=== PATIENT | male | born 1955 | race Caucasian/White ===

== ENCOUNTER → 2023-05-17 | Outpatient (CLI) | payer MEDICARE, BC, SELFPAY ==
--- NOTE | 2023-05-17 08:56 | DI.CT.S_ITS ---
PROCEDURE: CT CHEST ABD PEL W CON INDICATIONS: H N SCC unknown primary TECHNIQUE: After the administration of oral and intravenous contrast, axial sections acquired from the supraclavicular neck to the pubic symphysis. Coronal and sagittal reformats were performed. For radiation dose reduction, the following was used: automated exposure control, adjustment of mA and/or kV according to patient size. COMPARISON: None. FINDINGS: Image quality: Excellent. CHEST: Lower Neck: No enlarged lymph nodes. Thyroid: Within normal limits. Axillae: No enlarged lymph nodes. Chest Wall: Unremarkable. Lungs and Airways: No consolidation. Scattered solid pulmonary nodules measuring 2-3 mm, for example in the left upper lobe (axial image 238) and right upper lobe (axial image 246). Pleura: No pneumothorax or pleural effusions. Heart: Heart size is normal. No pericardial effusion. Thoracic Vessels: The aorta and pulmonary arteries demonstrate normal size. Mediastinum and Monet: No enlarged lymph nodes. Esophagus: No wall thickening. No hiatal hernia. ABDOMEN: Liver: Unremarkable. Gallbladder: Unremarkable. Biliary ducts: Unremarkable. Pancreas: Unremarkable. Spleen: Unremarkable. Adrenal Glands: Unremarkable. Kidneys and Ureters: 2 non-obstructing left renal calculi measuring up to 3 mm and single 2 mm nonobstructing right renal calculus. No hydronephrosis bilaterally. Kidneys are normal in size and symmetrically enhance. Bilateral subcentimeter cortical hypodensities are too small to characterize, probable cysts. Stomach and Bowel: Stomach, small bowel loops, and colon are unremarkable. Peritoneum: No abnormal intraperitoneal fluid. No free air. Ventral Wall: Tiny fat containing periumbilical hernia. Abdominal Nodes: No retroperitoneal or mesenteric adenopathy by size criteria. Vessels: Aorta and inferior vena cava are normal in size. Mild atherosclerotic calcifications of the abdominal aorta. PELVIS: Pelvic Organs: Unremarkable. Bladder: Unremarkable. Pelvic Nodes: No enlarged lymph nodes. Miscellaneous: No inguinal hernias are seen. Bones: Unremarkable. IMPRESSION: 1. Multiple scattered 2-3 mm pulmonary nodules are indeterminate. Recommend continued attention on follow-up imaging. 2. Non-obstructing bilateral renal calculi measuring up to 3 mm on the left and 2 mm on the right. No hydronephrosis. Approved by: Sienna Matthews M.D. on 05/23/2023 at 0:13
--- NOTE | 2023-05-17 08:56 | DI.CT.S_ITS ---
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 3 mm thick coronal and sagittal reformats were generated. For radiation dose reduction, the following was used: automated exposure control. COMPARISON: None. FINDINGS: Skull Base: The visualized intracranial contents, skull, and orbits are unremarkable. Mild mucosal thickening left sphenoid sinus And small retention cysts noted in the left maxillary sinus Pharynx and Larynx: The nasopharyngeal airway is patent and midline. There is an asymmetry to the piriform sinuses, with collapse of the left piriform sinus. The left aspect of the epiglottis is displaced laterally into the collapsed piriform sinus, there is suggestion of irregular heaped up mucosal thickening. Both tonsillar beds are within normal limits common show several tonsilliths. Tongue base and retropharyngeal space unremarkable. Normal appearance of the false and true vocal cords. Muscles and Fascial Planes: Fascial planes are well maintained. No abscess or mass lesion. Lymph Nodes: No evidence of adenopathy. Vasculature: Unremarkable. Submandibular and Parotid Glands: Normal in size and attenuation. Thyroid: Unremarkable. No enlarged or calcified nodules. Bones: No acute fracture. No osteolytic or blastic lesion is evident. Normal bone mineralization. Lung Apices: The visualized lung apices are clear. IMPRESSION: 1. Mild mucosal irregularity noted associated with the left piriform sinus and displacement of the left aspect of the epiglottis and aryepiglottic fold. Consider correlation with direct visualization and/or PET-CT. 2. No adenopathy Approved by: Liborio Bardales M.D. on 05/17/2023 at 17:55
== END ==
LOC: CT 08:56
PROVIDERS: Referring Provider Internal Medicine Hematology & Oncology; Visit Provider Internal Medicine Hematology & Oncology
DX: C79.89 Secondary malignant neoplasm of other specified sites (principal); C80.1 Malignant (primary) neoplasm, unspecified; J34.1 Cyst and mucocele of nose and nasal sinus; R91.8 Other nonspecific abnormal finding of lung field; N20.0 Calculus of kidney
CPT/HCPCS: 70491; 71260; 74177; Q9967